=== PATIENT | male | born 1985 | race African-American/Black ===

== ENCOUNTER 2021-10-17 09:06 | Emergency (ER) | payer OTHER ==
[~2021-10-17] VITALS: Ht 180.3 cm; Wt 91.6 kg
[~2021-10-17 09:06] MED LIST: OMEPRAZOLE 20 M20 MG PO; ZOFRAN ODT4 MG SUBLING
[2021-10-17 10:13] VITALS: BP 128/91
== END 2021-10-17 10:14 | disposition home or self-care (01) ==
LOC: M.ERS 09:06
DX: R51.9 Headache, unspecified (principal); R03.0 Elevated blood-pressure reading, without diagnosis of hypertension; H53.149 Visual discomfort, unspecified; Z91.013 Allergy to seafood